=== PATIENT | female | born 1965 | race Caucasian/White ===

== ENCOUNTER 2020-08-07 21:24 | Inpatient (IN) | payer OTHER ==
[~2020-08-07] VITALS: Ht 157.5 cm; Wt 62.7 kg
[2020-08-07] MEDS ORDERED: SODIUM CHLORIDE FLUSH 10ML SYR IVF ONE (21:30)
[2020-08-07] MEDS ORDERED: ONDANSETRON 2MG/ML, 2ML IVPush ONE (21:30)
[2020-08-07] MEDS ORDERED: HYDROmorphone 2 MG/ML, 1ML ONE ×2 (21:40→23:20)
[2020-08-07] MEDS ORDERED: ONDANSETRON 2MG/ML, 2ML ONE (21:41)
[2020-08-07] MEDS: HYDROmorphone 2 MG/ML, 1ML IVPush PRN ×2 (21:46→22:05)
--- NOTE | 2020-08-07 21:49 | NUR ---
medicated per order, on cont pulse ox. rails up, call german will continue monitor.
[2020-08-07 21:53] LABS: BASOPHILS % (AUTO) 0 % (0-1); EOSINOPHILS % (AUTO) 0 % (1-7); LYMPHOCYTES % (AUTO) 5 % (22-44); MEAN CORPUSCULAR HEMOGLOBIN 23.4 pg (27.0-34.8); MEAN CORPUSCULAR HGB CONC 31.3 g/dL (32.4-35.8); MEAN PLATELET VOLUME 8.2 fL (7.4-10.4); MONOCYTES % (AUTO) 3 % (2-9); NEUTROPHILS % (AUTO) 92 % (42-75); PLATELET COUNT 222 x10^3/uL (130-400); RED BLOOD COUNT 4.68 x10^6/uL (3.82-5.3); RED CELL DISTRIBUTION WIDTH 18.4 % (9.6-15.2)
--- NOTE | 2020-08-07 21:54 | NUR ---
PT MOANING, MOVING AROUND BED. ENCOURAGED PT NON PHARM METHODS FOR PAIN CONTROL WHILE DILAUDID WORKS. WILL CONTINUE TO MONITOR.
[2020-08-07 22:06] LABS: ALANINE AMINOTRANSFERASE 16 U/L (12-78); ALBUMIN 3.8 g/dL (3.4-5.0); ANION GAP 9 mmol/L (5-15); CALCIUM 9.2 mg/dL (8.5-10.1); CHLORIDE 107 mmol/L (98-107); CREATININE 1.06 mg/dL (0.55-1.02)
--- NOTE | 2020-08-07 22:06 | NUR ---
Pt still moaning, moving about in gurney with pain. remdicated per order, vs remain stable. no decrease in sats.
[2020-08-07 22:08] LABS: ALKALINE PHOSPHATASE 136 U/L (45-117); BILIRUBIN,TOTAL 0.9 mg/dL (0.2-1.0); TOTAL PROTEIN 8.8 g/dL (6.4-8.2)
[2020-08-07] MEDS ORDERED: METOCLOPRAMIDE 5 MG/ML, 2ML ONE (22:11)
[2020-08-07 22:18] LABS: MD SCAN
--- NOTE | 2020-08-07 22:20 | NUR ---
PT WITH ZERO RELIEF FROM DILAUDID TOTAL 2MG, LOOKING OVER PT MEDS SHE BROUGHT SHE IS TAKING PO NALTROXONE EVERY DAYFOR ETOH. INFORMED DR MEHTA. PT MEDICATED VERY SLOW IV DILUTED OUT REGLAN. WAITING FOR CT SCAN. LIGHTS DIM, WARM BLANKETS ENCOURAGED SLOW DEEP BREATHING, DISTRACTION. VSS.
[2020-08-07] MEDS ORDERED: METOCLOPRAMIDE 5 MG/ML, 2ML IVPush ONE (22:30)
--- NOTE | 2020-08-07 22:32 | NUR ---
TO CT VIA XINTECRNEY. NO RELIEF FROM PAIN PT STATES. ERP AWARE.
--- NOTE | 2020-08-07 22:50 | NUR ---
back from ct pt moaning, crying states "you need to give me something", vss. Reglan helped for pts retching and n/v. waiting for re-eval by erp and ct results.
[2020-08-07 22:57] LABS: MICROSCOPIC NOT IND
[2020-08-07] MEDS ORDERED: OMNIPAQUE 350 MG/ML, 100ML BOTTLE ONE (23:00)
--- NOTE | 2020-08-07 23:09 | NUR ---
Pt up and down from gurney, holding stomach reports severe abdominal pain. ERP aware. VSS.
--- NOTE | 2020-08-07 23:12 | NUR ---
Pt now wandering out of room down [address]arris yelling for help with abdominal pain.
[2020-08-07] MEDS ORDERED: HYDROmorphone 2 MG/ML, 1ML IVPush PRN (23:30)
[2020-08-07] MEDS ORDERED: HYDROmorphone 1 MG/ML, 1ML INJ IVPush PRN (23:45)
[2020-08-08] MEDS ORDERED: SODIUM CHLORIDE FLUSH 10ML SYR IVF PRN
[2020-08-08] MEDS ORDERED: ONDANSETRON 2MG/ML, 2ML IVPush PRN
[2020-08-08] MEDS ORDERED: HEPARIN 5,000 UNITS/ML, 1ML SQ SCH
--- NOTE | 2020-08-08 | NUR ---
Pt medicated total of 4mg dilauid, with very little relief. Pt on naloxone for etoh, md aware. VSS, pt up walking around, reports slight edge off of pain. Report to RN med/surg. Pt and all belongings tx to floor.
[2020-08-08] MEDS: morphine SULFATE 10 MG/ML, 1ML IVPush PRN ×8 (00:29→22:57)
[2020-08-08 00:32] VITALS: BP 172/91
[2020-08-08] MEDS: NS + 20MEQ KCL 1,000 ML IV SCH ×3 (01:10→22:19)
[2020-08-08] MEDS ORDERED: CITA10TA4 PO (01:13)
[2020-08-08] MEDS ORDERED: gabapentin (01:16)
[2020-08-08] MEDS: BISACODYL 10 MG SUPP PR SCH ×2 (01:27→07:58)
[2020-08-08 05:20] LABS: BASOPHILS % (AUTO) 0 % (0-1); EOSINOPHILS % (AUTO) 0 % (1-7); LYMPHOCYTES % (AUTO) 8 % (22-44); MEAN CORPUSCULAR HEMOGLOBIN 23.5 pg (27.0-34.8); MEAN CORPUSCULAR HGB CONC 31.9 g/dL (32.4-35.8); MEAN PLATELET VOLUME 8.4 fL (7.4-10.4); MONOCYTES % (AUTO) 8 % (2-9); NEUTROPHILS % (AUTO) 84 % (42-75); PLATELET COUNT 278 x10^3/uL (130-400); RED BLOOD COUNT 4.54 x10^6/uL (3.82-5.3); RED CELL DISTRIBUTION WIDTH 18.2 % (9.6-15.2)
[2020-08-08 05:23] LABS: MD NO
[2020-08-08 05:24] LABS: ANION GAP 11 mmol/L (5-15); CALCIUM 9.4 mg/dL (8.5-10.1); CHLORIDE 105 mmol/L (98-107)
[2020-08-08 05:27] LABS: CREATININE 1.04 mg/dL (0.55-1.02)
[2020-08-08] MEDS ORDERED: LORazepam 2 MG/ML, 1ML IVPush ONE (06:00)
[2020-08-08 06:44] VITALS: BP 173/89
[2020-08-08] MEDS: INSULIN LISPRO 100 UNITS/ML, PEN SQ-INSULIN SCH ×5 (07:00→21:00)
[2020-08-08] MEDS ORDERED: MAGNESIUM SULFATE/D5W 100 ML IVPB ONE (07:30)
[2020-08-08] MEDS ORDERED: LABETALOL 5MG/ML, 20ML IVPush PRN (07:30)
[2020-08-08] MEDS: IRON SUCROSE COMPLEX 100MG/5ML IV SCH (07:58)
[2020-08-08] MEDS: KETOROLAC 30 MG/1 ML IVPush SCH ×3 (09:39→21:14)
[2020-08-08 13:11] VITALS: BP 162/98
[2020-08-08 13:47] LABS: AMPHETAMINE SCREEN, URINE Negative (Negative); BARBITURATE SCREEN, URINE Negative (Negative); BENZODIAZEPINE SCREEN, URINE Positive (Negative); CANNABINOID SCREEN, URINE Positive (Negative); COCAINE SCREEN, URINE Negative (Negative); METHADONE SCREEN, URINE Negative (Negative); OPIATE SCREEN, URINE Positive (Negative)
[2020-08-08 19:32] VITALS: BP 133/79
[2020-08-09 01:42] VITALS: BP 131/81
[2020-08-09] MEDS: morphine SULFATE 10 MG/ML, 1ML IVPush PRN ×6 (02:33→22:36)
[2020-08-09] MEDS: KETOROLAC 30 MG/1 ML IVPush SCH ×4 (03:28→20:51)
[2020-08-09 07:10] VITALS: BP 132/82
[2020-08-09] MEDS: INSULIN LISPRO 100 UNITS/ML, PEN SQ-INSULIN SCH ×4 (07:26→20:57)
[2020-08-09] MEDS: NS + 20MEQ KCL 1,000 ML IV SCH ×2 (09:05→19:33)
[2020-08-09] MEDS: IRON SUCROSE COMPLEX 100MG/5ML IV SCH (10:09)
[2020-08-09] MEDS: BISACODYL 10 MG SUPP PR SCH (10:09)
[2020-08-09 13:23] VITALS: BP 119/75
[2020-08-09 19:30] VITALS: BP 117/67
[2020-08-10] MEDS: morphine SULFATE 10 MG/ML, 1ML IVPush PRN ×5 (03:04→17:02)
[2020-08-10 03:17] VITALS: BP 147/85
[2020-08-10] MEDS: KETOROLAC 30 MG/1 ML IVPush SCH ×5 (03:29→22:59)
[2020-08-10 05:25] LABS: ALBUMIN 2.7 g/dL (3.4-5.0); ANION GAP 7 mmol/L (5-15); CALCIUM 8.1 mg/dL (8.5-10.1); CHLORIDE 113 mmol/L (98-107)
[2020-08-10 05:28] LABS: ALANINE AMINOTRANSFERASE 10 U/L (12-78); ALKALINE PHOSPHATASE 88 U/L (45-117); BILIRUBIN,TOTAL 1.3 mg/dL (0.2-1.0); CREATININE 0.61 mg/dL (0.55-1.02); TOTAL PROTEIN 6.4 g/dL (6.4-8.2)
[2020-08-10 05:40] LABS: BASOPHILS % (AUTO) 2 % (0-1); EOSINOPHILS % (AUTO) 8 % (1-7); LYMPHOCYTES % (AUTO) 26 % (22-44); MEAN CORPUSCULAR HEMOGLOBIN 23.8 pg (27.0-34.8); MEAN CORPUSCULAR HGB CONC 31.8 g/dL (32.4-35.8); MEAN PLATELET VOLUME 8.4 fL (7.4-10.4); MONOCYTES % (AUTO) 14 % (2-9); NEUTROPHILS % (AUTO) 50 % (42-75); RED BLOOD COUNT 3.81 x10^6/uL (3.82-5.3); RED CELL DISTRIBUTION WIDTH 18.3 % (9.6-15.2)
[2020-08-10 05:47] LABS: MD NO
[2020-08-10 05:48] LABS: PLATELET COUNT 172 x10^3/uL (130-400)
[2020-08-10] MEDS: NS + 20MEQ KCL 1,000 ML IV SCH ×2 (06:15→20:51)
[2020-08-10] MEDS: INSULIN LISPRO 100 UNITS/ML, PEN SQ-INSULIN SCH ×4 (07:10→20:56)
[2020-08-10 07:53] VITALS: BP 137/81
[2020-08-10] MEDS: BISACODYL 10 MG SUPP PR SCH (09:30)
[2020-08-10] MEDS: IRON SUCROSE COMPLEX 100MG/5ML IV SCH (09:31)
[2020-08-10 13:24] VITALS: BP 134/81
[2020-08-10] MEDS ORDERED: MIDAZOLAM 1 MG/ML, 2ML ONE (13:37)
[2020-08-10] MEDS ORDERED: FENTANYL PF 250 MCG/5ML ONE ×3 (13:37→15:05)
[2020-08-10] MEDS ORDERED: DEXAMETHASONE 4 MG/ML, 1ML ONE (13:43)
[2020-08-10] MEDS ORDERED: PROPOFOL 10 MG/ML, 20ML ONE (13:43)
[2020-08-10] MEDS ORDERED: ROCURONIUM 10MG/ML,5ML ONE (13:43)
[2020-08-10] MEDS ORDERED: ONDANSETRON 2MG/ML, 2ML ONE (13:43)
[2020-08-10] MEDS ORDERED: SUCCINYLCHOLINE 20 MG/ML, 10ML ONE (13:43)
[2020-08-10] MEDS ORDERED: NEOSTIGMINE 1 MG/ML, 10ML ONE (13:43)
[2020-08-10] MEDS ORDERED: CEFAZOLIN 1,000 MG ONE (13:43)
[2020-08-10] MEDS ORDERED: GLYCOPYRROLATE 0.2MG/1ML, 5ML ONE (13:43)
[2020-08-10] MEDS ORDERED: OXYcodone 5 MG/5 ML ORAL.SOL UDC PO PRN (14:00)
[2020-08-10] MEDS ORDERED: hydrALAzine 20 MG/ML, 1ML IV PRN (14:00)
[2020-08-10] MEDS ORDERED: MEPERIDINE/PF 25MG/0.5ML IVPush PRN (14:00)
[2020-08-10] MEDS ORDERED: HYDROmorphone 1 MG/ML, 1ML INJ IVPush PRN (14:00)
[2020-08-10] MEDS ORDERED: PROMETHAZINE 25 MG/ML, 1ML IVPush PRN (14:00)
[2020-08-10] MEDS ORDERED: HALOPERIDOL 5 MG/ML IV PRN (14:00)
[2020-08-10] MEDS ORDERED: morphine SULFATE 10 MG/ML, 1ML IVPush PRN (14:00)
[2020-08-10] MEDS ORDERED: LABETALOL 5MG/ML, 20ML IV PRN (14:00)
[2020-08-10] MEDS ORDERED: ACETAMINOPHEN 325 MG TABLET PO PRN (14:00)
[2020-08-10] MEDS ORDERED: BUPIVACAINE/PF 0.25% ONE ×2 (15:12)
[2020-08-10] MEDS ORDERED: SUGAMMADEX 200 MG/2 ML IVPush ONE (15:29)
[2020-08-10] MEDS: FENTANYL PF 100 MCG/2ML IV PRN ×4 (15:42→16:14)
[2020-08-10] MEDS ORDERED: MORPHINE SULFATE 4 MG/ML, 1ML ONE (15:42)
[2020-08-10] MEDS ORDERED: FENTANYL PF 100 MCG/2ML ONE ×2 (15:42→16:23)
[2020-08-10] MEDS ORDERED: KETOROLAC 30 MG/1 ML ONE (16:23)
[2020-08-10 18:48] VITALS: BP 147/81
[2020-08-11 02:38] VITALS: BP 111/69
[2020-08-11] MEDS: KETOROLAC 30 MG/1 ML IVPush SCH ×3 (04:39→16:34)
[2020-08-11] MEDS: NS + 20MEQ KCL 1,000 ML IV SCH ×2 (06:24→16:34)
[2020-08-11 07:31] VITALS: BP 119/69
[2020-08-11] MEDS: INSULIN LISPRO 100 UNITS/ML, PEN SQ-INSULIN SCH ×2 (07:34→10:56)
[2020-08-11] MEDS: BISACODYL 10 MG SUPP PR SCH (09:08)
[2020-08-11] MEDS: IRON SUCROSE COMPLEX 100MG/5ML IV SCH (09:08)
[2020-08-11 13:21] VITALS: BP 134/81
[2020-08-11] MEDS: PANTOPRAZOLE 80 MG in SODIUM CHLORIDE 0.9% 100 ML IV SCH (14:03)
[2020-08-11 19:23] VITALS: BP 150/89
[2020-08-12] MEDS: KETOROLAC 30 MG/1 ML IVPush SCH ×4 (00:13→17:59)
[2020-08-12] MEDS: PANTOPRAZOLE 80 MG in SODIUM CHLORIDE 0.9% 100 ML IV SCH (00:13)
[2020-08-12 02:00] VITALS: BP 147/88
[2020-08-12] MEDS: NS + 20MEQ KCL 1,000 ML IV SCH ×2 (03:15→17:59)
[2020-08-12 06:24] LABS: BASOPHILS % (AUTO) 1 % (0-1); EOSINOPHILS % (AUTO) 9 % (1-7); LYMPHOCYTES % (AUTO) 19 % (22-44); MEAN CORPUSCULAR HEMOGLOBIN 23.7 pg (27.0-34.8); MEAN CORPUSCULAR HGB CONC 31.8 g/dL (32.4-35.8); MEAN PLATELET VOLUME 8.6 fL (7.4-10.4); MONOCYTES % (AUTO) 10 % (2-9); NEUTROPHILS % (AUTO) 60 % (42-75); PLATELET COUNT 199 x10^3/uL (130-400); RED BLOOD COUNT 3.91 x10^6/uL (3.82-5.3)
[2020-08-12 06:36] LABS: ALBUMIN 2.8 g/dL (3.4-5.0); ANION GAP 11 mmol/L (5-15); CHLORIDE 110 mmol/L (98-107); MD NO
[2020-08-12 06:40] LABS: ALANINE AMINOTRANSFERASE 9 U/L (12-78); ALKALINE PHOSPHATASE 90 U/L (45-117); CREATININE 0.59 mg/dL (0.55-1.02); TOTAL PROTEIN 6.5 g/dL (6.4-8.2)
[2020-08-12 09:45] VITALS: BP 130/86
[2020-08-12] MEDS: BISACODYL 10 MG SUPP PR SCH (12:00)
[2020-08-12] MEDS: IRON SUCROSE COMPLEX 100MG/5ML IV SCH (13:09)
[2020-08-12] MEDS: FAMOTIDINE 20 MG/2 ML IVPush SCH ×2 (13:10→21:39)
[2020-08-12 14:00] VITALS: BP 129/80
[2020-08-12 19:48] VITALS: BP 120/70
[2020-08-13] MEDS: KETOROLAC 30 MG/1 ML IVPush SCH ×2 (00:24→06:05)
[2020-08-13 02:03] VITALS: BP 143/85
[2020-08-13 06:04] LABS: BASOPHILS % (AUTO) 1 % (0-1); EOSINOPHILS % (AUTO) 11 % (1-7); LYMPHOCYTES % (AUTO) 22 % (22-44); MEAN CORPUSCULAR HEMOGLOBIN 23.5 pg (27.0-34.8); MEAN CORPUSCULAR HGB CONC 31.4 g/dL (32.4-35.8); MEAN PLATELET VOLUME 8.4 fL (7.4-10.4); MONOCYTES % (AUTO) 9 % (2-9); NEUTROPHILS % (AUTO) 57 % (42-75); PLATELET COUNT 190 x10^3/uL (130-400); RED BLOOD COUNT 3.78 x10^6/uL (3.82-5.3); RED CELL DISTRIBUTION WIDTH 18.5 % (9.6-15.2)
[2020-08-13 06:09] LABS: ANION GAP 13 mmol/L (5-15); CALCIUM 8.2 mg/dL (8.5-10.1); CHLORIDE 112 mmol/L (98-107); CREATININE 0.52 mg/dL (0.55-1.02)
[2020-08-13 06:10] LABS: MD NO
[2020-08-13 07:48] VITALS: BP 139/81
[2020-08-13] MEDS: NS + 20MEQ KCL 1,000 ML IV SCH (09:05)
[2020-08-13] MEDS: FAMOTIDINE 20 MG/2 ML IVPush SCH ×2 (09:05→19:50)
[2020-08-13] MEDS: BISACODYL 10 MG SUPP PR SCH (09:05)
[2020-08-13] MEDS: D5%-0.45NACL+KCL 20MEQ 1,000 ML IV SCH ×2 (11:52→22:08)
[2020-08-13] MEDS: morphine SULFATE 10 MG/ML, 1ML IVPush PRN ×4 (12:00→19:51)
[2020-08-13 14:07] VITALS: BP 129/76
[2020-08-13 19:41] VITALS: BP 165/98
[2020-08-14 00:10] VITALS: BP 169/86
[2020-08-14] MEDS: morphine SULFATE 10 MG/ML, 1ML IVPush PRN ×5 (00:15→20:34)
[2020-08-14 05:10] LABS: CHLORIDE 108 mmol/L (98-107)
[2020-08-14 05:16] LABS: ANION GAP 5 mmol/L (5-15); CALCIUM 8.5 mg/dL (8.5-10.1); CREATININE 0.59 mg/dL (0.55-1.02)
[2020-08-14 05:38] LABS: BASOPHILS % (AUTO) 1 % (0-1); EOSINOPHILS % (AUTO) 9 % (1-7); LYMPHOCYTES % (AUTO) 19 % (22-44); MEAN CORPUSCULAR HEMOGLOBIN 24.1 pg (27.0-34.8); MEAN CORPUSCULAR HGB CONC 32.7 g/dL (32.4-35.8); MEAN PLATELET VOLUME 8.5 fL (7.4-10.4); MONOCYTES % (AUTO) 10 % (2-9); NEUTROPHILS % (AUTO) 60 % (42-75); PLATELET COUNT 190 x10^3/uL (130-400); RED BLOOD COUNT 4.02 x10^6/uL (3.82-5.3); RED CELL DISTRIBUTION WIDTH 18.1 % (9.6-15.2)
[2020-08-14 05:52] LABS: MD NO
[2020-08-14 06:58] VITALS: BP 162/83
[2020-08-14] MEDS ORDERED: POTASSIUM CHLORIDE 20 MEQ TAB.ER.PRT PO ONE (07:30)
[2020-08-14] MEDS: FAMOTIDINE 20 MG/2 ML IVPush SCH ×2 (10:06→20:33)
[2020-08-14] MEDS: BISACODYL 10 MG SUPP PR SCH (10:06)
[2020-08-14] MEDS ORDERED: hydrALAzine 20 MG/ML, 1ML IV PRN (12:00)
[2020-08-14 12:53] VITALS: BP 162/94
[2020-08-14] MEDS: D5%-0.45NACL+KCL 20MEQ 1,000 ML IV SCH (13:11)
[2020-08-14] MEDS: CITALOPRAM 10 MG TABLET PO SCH (13:13)
[2020-08-14 14:16] VITALS: BP 151/92
[2020-08-14] MEDS: HYDROcodone/APAP 5/325 TABLET PO PRN ×2 (15:38→22:20)
[2020-08-14 20:21] VITALS: BP 127/76
[2020-08-15] MEDS: D5%-0.45NACL+KCL 20MEQ 1,000 ML IV SCH ×2 (02:12→16:25)
[2020-08-15] MEDS ORDERED: MORPHINE SULFATE 4 MG/ML, 1ML ONE (02:13)
[2020-08-15 02:16] VITALS: BP 128/83
[2020-08-15] MEDS: morphine SULFATE 10 MG/ML, 1ML IVPush PRN ×3 (02:16→22:29)
[2020-08-15] MEDS: HYDROcodone/APAP 5/325 TABLET PO PRN ×4 (05:56→21:13)
[2020-08-15 06:24] LABS: ANION GAP 5 mmol/L (5-15); CALCIUM 8.5 mg/dL (8.5-10.1); CHLORIDE 111 mmol/L (98-107); CREATININE 0.54 mg/dL (0.55-1.02)
[2020-08-15 06:32] LABS: BASOPHILS % (AUTO) 2 % (0-1); EOSINOPHILS % (AUTO) 12 % (1-7); LYMPHOCYTES % (AUTO) 23 % (22-44); MEAN CORPUSCULAR HEMOGLOBIN 24.5 pg (27.0-34.8); MEAN PLATELET VOLUME 8.8 fL (7.4-10.4); MONOCYTES % (AUTO) 11 % (2-9); NEUTROPHILS % (AUTO) 53 % (42-75); PLATELET COUNT 206 x10^3/uL (130-400); RED BLOOD COUNT 4.03 x10^6/uL (3.82-5.3); RED CELL DISTRIBUTION WIDTH 18.2 % (9.6-15.2)
[2020-08-15 06:52] LABS: MD NO
[2020-08-15] MEDS: METOCLOPRAMIDE 5 MG/ML, 2ML IVPush SCH ×3 (07:51→21:12)
[2020-08-15] MEDS: FAMOTIDINE 20 MG/2 ML IVPush SCH ×2 (07:52→21:13)
[2020-08-15] MEDS: CITALOPRAM 10 MG TABLET PO SCH (07:52)
[2020-08-15 08:43] VITALS: BP 109/68
[2020-08-15] MEDS: BISACODYL 10 MG SUPP PR SCH (09:00)
[2020-08-15 13:06] VITALS: BP 99/68
[2020-08-15 19:07] VITALS: BP 134/83
[2020-08-16 01:09] VITALS: BP 126/80
[2020-08-16] MEDS: morphine SULFATE 10 MG/ML, 1ML IVPush PRN ×5 (01:33→23:36)
[2020-08-16] MEDS: METOCLOPRAMIDE 5 MG/ML, 2ML IVPush SCH ×4 (02:58→20:30)
[2020-08-16] MEDS: D5%-0.45NACL+KCL 20MEQ 1,000 ML IV SCH ×2 (03:33→18:05)
[2020-08-16] MEDS: HYDROcodone/APAP 5/325 TABLET PO PRN ×4 (06:04→20:31)
[2020-08-16 06:31] LABS: CHLORIDE 111 mmol/L (98-107)
[2020-08-16 06:37] LABS: BASOPHILS % (AUTO) 2 % (0-1); EOSINOPHILS % (AUTO) 13 % (1-7); LYMPHOCYTES % (AUTO) 27 % (22-44); MEAN CORPUSCULAR HEMOGLOBIN 24.5 pg (27.0-34.8); MEAN CORPUSCULAR HGB CONC 32.4 g/dL (32.4-35.8); MEAN PLATELET VOLUME 8.2 fL (7.4-10.4); MONOCYTES % (AUTO) 9 % (2-9); NEUTROPHILS % (AUTO) 48 % (42-75); PLATELET COUNT 215 x10^3/uL (130-400); RED BLOOD COUNT 4.03 x10^6/uL (3.82-5.3); RED CELL DISTRIBUTION WIDTH 19.6 % (9.6-15.2)
[2020-08-16 06:39] LABS: ANION GAP 5 mmol/L (5-15); CALCIUM 8.3 mg/dL (8.5-10.1); CREATININE 0.48 mg/dL (0.55-1.02)
[2020-08-16 07:23] VITALS: BP 125/82
[2020-08-16 07:38] LABS: MD MORPH REVIEW ONLY
[2020-08-16 07:41] LABS: ANISOCYTOSIS 1+; MICROCYTOSIS 1+
[2020-08-16 07:42] LABS: HYPOCHROMIA 1+; OVALOCYTES 1+; POLYCHROMASIA 1+
[2020-08-16 07:44] LABS: SCHISTOCYTES 1+; TEAR DROPS 1+
[2020-08-16 07:45] LABS: <PLATELET ESTIMATE> ADEQUATE; <PLT MORPHOLOGY> NORMAL PLT MORPH
[2020-08-16] MEDS: BISACODYL 10 MG SUPP PR SCH (08:00)
[2020-08-16] MEDS: CITALOPRAM 10 MG TABLET PO SCH (08:00)
[2020-08-16] MEDS: FAMOTIDINE 20 MG/2 ML IVPush SCH ×2 (08:00→20:30)
[2020-08-16 13:12] VITALS: BP 144/92
[2020-08-16 19:41] VITALS: BP 155/96
[2020-08-17] MEDS: METOCLOPRAMIDE 5 MG/ML, 2ML IVPush SCH ×2 (03:04→09:49)
[2020-08-17 03:06] VITALS: BP 131/84
[2020-08-17] MEDS: HYDROcodone/APAP 5/325 TABLET PO PRN ×2 (04:37→11:12)
[2020-08-17] MEDS: D5%-0.45NACL+KCL 20MEQ 1,000 ML IV SCH (06:46)
[2020-08-17 08:02] VITALS: BP 142/87
[2020-08-17] MEDS: BISACODYL 10 MG SUPP PR SCH (09:00)
[2020-08-17] MEDS: FAMOTIDINE 20 MG/2 ML IVPush SCH (09:49)
[2020-08-17] MEDS: CITALOPRAM 10 MG TABLET PO SCH (09:49)
[2020-08-17] MEDS ORDERED: D5%-0.45NACL+KCL 20MEQ 1,000 ML IV SCH (11:30)
[2020-08-17 14:36] VITALS: BP 130/92
[2020-08-17] MEDS: OXYcodone/APAP 5/325MG TABLET PO PRN ×2 (15:18→20:10)
[2020-08-17] MEDS: METOCLOPRAMIDE 10MG TABLET PO SCH ×2 (16:29→20:11)
[2020-08-17 18:46] VITALS: BP 152/88
[2020-08-17] MEDS ORDERED: FAMOTIDINE 40 MG TABLET ONE (20:05)
[2020-08-17] MEDS: FAMOTIDINE 20 MG TABLET PO SCH (20:11)
[2020-08-18 00:16] VITALS: BP 133/78
[2020-08-18] MEDS: OXYcodone/APAP 5/325MG TABLET PO PRN ×2 (01:20→06:16)
[2020-08-18] MEDS: METOCLOPRAMIDE 10MG TABLET PO SCH ×4 (06:15→19:49)
[2020-08-18 07:00] VITALS: BP 148/84
[2020-08-18] MEDS ORDERED: ACETAMINOPHEN 325 MG TABLET PO PRN (07:00)
[2020-08-18] MEDS: FAMOTIDINE 20 MG TABLET PO SCH ×2 (09:00→19:50)
[2020-08-18] MEDS: BISACODYL 10 MG SUPP PR SCH (09:00)
[2020-08-18] MEDS ORDERED: FAMOTIDINE 40 MG TABLET ONE ×2 (09:18→19:40)
[2020-08-18] MEDS: CITALOPRAM 10 MG TABLET PO SCH (09:23)
[2020-08-18] MEDS: OXYcodone IR 5MG TABLET PO PRN ×5 (09:23→23:16)
[2020-08-18 11:47] VITALS: BP 143/76
[2020-08-18 18:52] VITALS: BP 125/73
[2020-08-19 01:48] VITALS: BP 115/70
[2020-08-19 06:57] VITALS: BP 120/78
[2020-08-19] MEDS ORDERED: FAMOTIDINE 40 MG TABLET ONE (07:46)
[2020-08-19] MEDS: BISACODYL 10 MG SUPP PR SCH (07:49)
[2020-08-19] MEDS: FAMOTIDINE 20 MG TABLET PO SCH (07:50)
[2020-08-19] MEDS: OXYcodone IR 5MG TABLET PO PRN ×2 (07:50→12:16)
[2020-08-19] MEDS ORDERED: DOCU-131 PO (07:51)
[2020-08-19] MEDS ORDERED: ACET325T26 PO (07:51)
[2020-08-19] MEDS: METOCLOPRAMIDE 10MG TABLET PO SCH ×2 (07:51→12:16)
[2020-08-19] MEDS ORDERED: OXYC5TAB3 PO ×4 (07:51→08:36)
[2020-08-19] MEDS: CITALOPRAM 10 MG TABLET PO SCH (07:51)
[2020-08-19 12:37] VITALS: BP 112/74
== END 2020-08-19 14:45 | disposition home or self-care (01) | DRG 336 ==
LOC: ED 22:12 → EDIP 08-08 00:03 → 4NW 08-08 00:16 → DCLOUNGE 08-19 14:29
PROVIDERS: ADMIT Family Medicine; ATTEND Hospitalist
PROC: 0DJD0ZZ Inspection of Lower Intestinal Tract, Open Approach (ICD-10-PCS; 2020-08-10)
PROC: 0DTJ0ZZ Resection of Appendix, Open Approach (ICD-10-PCS; 2020-08-10)
PROC: 0DNU0ZZ Release Omentum, Open Approach (ICD-10-PCS; principal; 2020-08-10 14:30)
PROC: 0DH67UZ Insertion of Feeding Device into Stomach, Via Natural or Artificial Opening (ICD-10-PCS; 2020-08-11)
DX: K56.52 Intestinal adhesions [bands] with complete obstruction (principal); E46 Unspecified protein-calorie malnutrition; Z20.828 Contact with and (suspected) exposure to other viral communicable diseases; K56.7 Ileus, unspecified; K43.9 Ventral hernia without obstruction or gangrene; D50.9 Iron deficiency anemia, unspecified; E11.65 Type 2 diabetes mellitus with hyperglycemia; E87.6 Hypokalemia; F10.21 Alcohol dependence, in remission; I07.1 Rheumatic tricuspid insufficiency; I35.8 Other nonrheumatic aortic valve disorders; Z87.11 Personal history of peptic ulcer disease; Z90.49 Acquired absence of other specified parts of digestive tract; Z98.891 History of uterine scar from previous surgery; Z79.899 Other long term (current) drug therapy; Z79.891 Long term (current) use of opiate analgesic; Z79.01 Long term (current) use of anticoagulants; Z79.4 Long term (current) use of insulin; Z68.25 Body mass index [BMI] 25.0-25.9, adult
CPT/HCPCS: 36415; 74018; 74022; 74177; 80048; 80053; 80307; 81003; 82728; 82962; 83036; 83540; 83550; 83605; 83690; 83735; 84100; 85025; 87635; 88304; 93005; 93306; G0378; J0690; J1100; J1170; J1644; J1756; J1885; J2250; J2270; J2405; J2704; J2710; J3010; J3480; Q9967; C9113; J0330; J1815; J2060; J2765

== ENCOUNTER 2020-08-25 23:48 | Inpatient (IN) | payer MEDICAID ==
[~2020-08-25] VITALS: Ht 157.5 cm; Wt 61.2 kg
[~2020-08-25 23:48] MED LIST: ACET325T26 PO; CITA10TA4 PO; DOCU-131 PO; OXYC5TAB3 PO; gabapentin
[2020-08-25] MEDS ORDERED: LIDOCAINE-MPF 1%, 5ML ONE (23:57)
[2020-08-26] MEDS ORDERED: LIDOCAINE-MPF 1%, 5ML INFIL ONE
--- NOTE | 2020-08-26 | NUR ---
TASK RN: BIB [facility] FROM HALF-WAY S/P GLF. +LAC TO R FOREHEAD. DENIES LOC/MIDLINE NECK OR BACK PAIN, DENIES TAKING BLOOD THINNERS. PT MARKEDLY DROWSY UPON ARRIVAL, MAINTAINING OWN AIRWAY AND ARROUSABLE TO VOICE AND LIGHT PHYSICAL STIM. UPON AWAKING, PT A&OX4. BP/SPO2/ECG MONITORING IN PLACE. SINUS TACH ON MONITOR. IVF INFUSING FROM [facility], OKAY PER ERP. BG JAVA J2EE TECHNICAL LEAD 150. RECENT SURGICAL INCISION ON ABDOMEN. PT STATES SHE HAD A BOWEL SURGERY AND APPENDECTOMY AT [facility]. WOUND APPEARS WELL APPROXIMATED, IS DRY AND NON-TENDER
[2020-08-26] MEDS ORDERED: DIAZ10TA4 PO (00:25)
[2020-08-26] MEDS ORDERED: CITA20TA9 PO (00:25)
[2020-08-26] MEDS ORDERED: GABA-827 PO (00:25)
[2020-08-26] MEDS ORDERED: TRAZ-175 PO (00:25)
[2020-08-26 01:01] LABS: BASOPHILS % (AUTO) 1 % (0-1); EOSINOPHILS % (AUTO) 0 % (1-7); LYMPHOCYTES % (AUTO) 12 % (22-44); MEAN CORPUSCULAR HEMOGLOBIN 24.1 pg (27.0-34.8); MEAN CORPUSCULAR HGB CONC 31.6 g/dL (32.4-35.8); MONOCYTES % (AUTO) 5 % (2-9); NEUTROPHILS % (AUTO) 81 % (42-75); PLATELET COUNT 450 x10^3/uL (130-400); RED BLOOD COUNT 5.26 x10^6/uL (3.82-5.3); RED CELL DISTRIBUTION WIDTH 24.8 % (9.6-15.2)
--- NOTE | 2020-08-26 01:07 | NUR ---
PT REMAINS CONNECTED TO ALL MONITORS. VISIBLE CHEST RISE AND FALL.
[2020-08-26 01:10] LABS: ALANINE AMINOTRANSFERASE 13 U/L (12-78); ALBUMIN 3.5 g/dL (3.4-5.0); ANION GAP 10 mmol/L (5-15); CALCIUM 8.6 mg/dL (8.5-10.1); CHLORIDE 108 mmol/L (98-107); CREATININE 2.23 mg/dL (0.55-1.02)
[2020-08-26 01:12] LABS: ALKALINE PHOSPHATASE 117 U/L (45-117); BILIRUBIN,TOTAL 0.9 mg/dL (0.2-1.0); TOTAL PROTEIN 8.3 g/dL (6.4-8.2)
[2020-08-26 01:13] LABS: SALICYLATE LEVEL < 1.7 mg/dL (2.8-20.0)
[2020-08-26 01:26] LABS: ANISOCYTOSIS 1+; MD MORPH REVIEW ONLY; OVALOCYTES 1+
[2020-08-26 01:27] LABS: <PLATELET ESTIMATE> INCREASED; <PLT MORPHOLOGY> NORMAL PLT MORPH
[2020-08-26] MEDS ORDERED: SODIUM CHLORIDE 0.9% 1,000ML IVBOLUS ONE (01:30)
[2020-08-26] MEDS ORDERED: SODIUM CHLORIDE FLUSH 10ML SYR IVF ONE (01:30)
[2020-08-26] MEDS ORDERED: DIPH,PERTUSS(ACELL),TET VAC/PF 0.5 ML IM-VACC ONE ×2 (01:42)
--- NOTE | 2020-08-26 03:14 | NUR ---
ADMITTING MD AT BEDSIDE.
[2020-08-26] MEDS ORDERED: BUTALB/APAP/CAFFEINE 50MG/325MG/40MG PO PRN (03:30)
[2020-08-26] MEDS ORDERED: BISACODYL 10 MG SUPP PR PRN (03:30)
[2020-08-26] MEDS ORDERED: LABETALOL 5MG/ML, 20ML IVPush PRN (03:30)
[2020-08-26] MEDS ORDERED: LIDODERM 5% PATCH TD PRN (03:30)
[2020-08-26] MEDS ORDERED: POLYETHYLENE GLYCOL 17 GM PACKET PO PRN (03:30)
[2020-08-26] MEDS ORDERED: ONDANSETRON 2MG/ML, 2ML IVPush PRN (03:30)
[2020-08-26] MEDS ORDERED: PROMETHAZINE 25 MG/ML, 1ML IM PRN (03:30)
[2020-08-26] MEDS ORDERED: ACETAMINOPHEN 325 MG TABLET PO PRN (03:30)
--- NOTE | 2020-08-26 03:31 | NUR ---
PT ON HOSPITAL BED.
[2020-08-26] MEDS ORDERED: ACETAMINOPHEN 325 MG TABLET ONE (03:37)
[2020-08-26] MEDS ORDERED: OXYcodone 5 MG/5 ML ORAL.SOL UDC ONE (03:40)
[2020-08-26] MEDS ORDERED: OXYcodone IR 5MG TABLET ONE ×2 (03:43→12:23)
[2020-08-26] MEDS: OXYcodone IR 5MG TABLET PO PRN ×2 (03:45→12:26)
[2020-08-26] MEDS: LACTATED RINGERS 1,000 ML IV SCH ×3 (03:45→20:08)
--- NOTE | 2020-08-26 05:44 | NUR ---
LEV UPDATED WITH PT'S PERMISSION. PER LEV "YOU KNOW SHE WAS DRUNK LAST NIGHT RIGHT? I'M IN CHARGE OF HER VALIUM AND I DID NOT GIVE HER ANY, I FOUND AN EMPTY BOTTLE OF ALCOHOL WHEN I DID HER ROOM SEARCH."
--- NOTE | 2020-08-26 05:49 | NUR ---
PT TO IMAGING.
[2020-08-26] MEDS ORDERED: GABAPENTIN 100 MG CAPSULE PO SCH (06:00)
--- NOTE | 2020-08-26 07:04 | NUR ---
REPORT TO ABBE KAUFMAN. PT AWAKE AND ALERT. NADN. REMAINS CONNECTED TO ALL MONITORS.
--- NOTE | 2020-08-26 07:12 | NUR ---
THIS RN WALKED 6 PILLS THAT ABBE HARRELL FOUND IN PATIENT'S BRA TO PHARMACY FOR STORAGE WHILE PT IS ADMITTED IN HOSPITAL.
[2020-08-26] MEDS: CITALOPRAM 20 MG TABLET PO SCH (08:39)
[2020-08-26] MEDS: SENNA/DOCUSATE TABLET PO SCH (08:41)
[2020-08-26] MEDS ORDERED: DIAZEPAM 5 MG TABLET PO SCH (09:00)
--- NOTE | 2020-08-26 09:30 | NUR ---
PT GIVEN MEAL TRAY, ASSISTED WITH BEDPAN, VSS, NO OTHER NEEDS AT THIS TIME
[2020-08-26 10:12] LABS: CHLORIDE,URINE RANDOM 52 mmol/L; POTASSIUM,URINE RANDOM 88 mmol/L; SODIUM,URINE RANDOM 31 mmol/L
[2020-08-26 10:24] LABS: AMPHETAMINE SCREEN, URINE Negative (Negative); BARBITURATE SCREEN, URINE Negative (Negative); BENZODIAZEPINE SCREEN, URINE Positive (Negative); CANNABINOID SCREEN, URINE Positive (Negative); COCAINE SCREEN, URINE Negative (Negative); METHADONE SCREEN, URINE Negative (Negative); OPIATE SCREEN, URINE Negative (Negative)
--- NOTE | 2020-08-26 12:27 | NUR ---
BREAK RN- MEDICATION ORDERED
--- NOTE | 2020-08-26 13:38 | NUR ---
PT RIPPED OFF CSPINE COLLAR, STATES SHE WILL NOT PUT BACK ON. SOFT ASPEN COLLAR ORDERED FROM [facility], PT EDUCATED ON NEED FOR C SPINE STABLIZATION. PT WILL ALLOW SOFT COLLAR PLACEMENT. [facility] CALLED
--- NOTE | 2020-08-26 14:05 | NUR ---
VISTA COLLAR PLACED BY 2 RN WITH MD AT BEDSIDE. MD TO ORDER ADDITIONAL PAIN MEDICATIONS PER PT REQUEST. AWAITING ORDERS. VSS. NO ADDITIONAL NEEDS AT THIS TIME
[2020-08-26] MEDS ORDERED: GABAPENTIN 100 MG CAPSULE PO PRN (14:30)
[2020-08-26] MEDS ORDERED: HYDROmorphone 1 MG/ML, 1ML INJ IM PRN ×2 (14:30)
[2020-08-26] MEDS ORDERED: DIAZEPAM 5 MG TABLET PO PRN (14:30)
--- NOTE | 2020-08-26 14:30 | NUR ---
LEV FIELD UNDERWRITER AT [facility]. [phone]
[2020-08-26] MEDS ORDERED: GABAPENTIN 300 MG CAPSULE ONE (15:36)
[2020-08-26] MEDS ORDERED: HYDROmorphone 1 MG/ML, 1ML INJ ONE (15:36)
[2020-08-26] MEDS: HYDROmorphone 1 MG/ML, 1ML INJ IV PRN ×2 (15:39→20:08)
--- NOTE | 2020-08-26 15:44 | NUR ---
TASK RN: PT ASSISTED W/ BED ASIM. MEDICATED PER EMAR.
[2020-08-26] MEDS ORDERED: GABAPENTIN 300 MG CAPSULE PO PRN (16:30)
[2020-08-26] MEDS ORDERED: TRAZODONE 50MG TABLET PO PRN (16:30)
--- NOTE | 2020-08-26 17:50 | NUR ---
REPORT CALLED TO RECIEVING RN
[2020-08-26 20:09] VITALS: BP 128/74
[2020-08-26] MEDS ORDERED: TRAZODONE 100MG TABLET PO SCH (21:00)
[2020-08-27 00:02] VITALS: BP 151/90
[2020-08-27] MEDS: HYDROmorphone 1 MG/ML, 1ML INJ IV PRN ×6 (00:12→21:33)
[2020-08-27] MEDS: LACTATED RINGERS 1,000 ML IV SCH ×2 (04:28→15:55)
[2020-08-27 05:47] LABS: BASOPHILS % (AUTO) 2 % (0-1); EOSINOPHILS % (AUTO) 1 % (1-7); LYMPHOCYTES % (AUTO) 24 % (22-44); MEAN CORPUSCULAR HEMOGLOBIN 24.2 pg (27.0-34.8); MEAN CORPUSCULAR HGB CONC 31.9 g/dL (32.4-35.8); MEAN PLATELET VOLUME 7.9 fL (7.4-10.4); MONOCYTES % (AUTO) 9 % (2-9); NEUTROPHILS % (AUTO) 64 % (42-75); PLATELET COUNT 286 x10^3/uL (130-400)
[2020-08-27 05:57] LABS: ANION GAP 5 mmol/L (5-15); CHLORIDE 106 mmol/L (98-107)
[2020-08-27 05:59] LABS: CALCIUM 8.7 mg/dL (8.5-10.1); CREATININE 1.43 mg/dL (0.55-1.02)
[2020-08-27 06:36] VITALS: BP 147/77
[2020-08-27 06:36] LABS: MD SCAN
[2020-08-27] MEDS ORDERED: POTASSIUM CHLORIDE 20 MEQ TAB.ER.PRT PO ONE (07:30)
[2020-08-27] MEDS: CITALOPRAM 20 MG TABLET PO SCH (08:31)
[2020-08-27] MEDS: SENNA/DOCUSATE TABLET PO SCH (08:43)
[2020-08-27 14:37] VITALS: BP 156/77
[2020-08-27 19:28] VITALS: BP 157/90
[2020-08-27] MEDS: OXYcodone IR 5MG TABLET PO PRN (20:58)
[2020-08-28] MEDS: LACTATED RINGERS 1,000 ML IV SCH ×3 (00:28→14:19)
[2020-08-28] MEDS: OXYcodone IR 5MG TABLET PO PRN ×4 (01:09→14:18)
[2020-08-28] MEDS: HYDROmorphone 1 MG/ML, 1ML INJ IV PRN ×2 (01:40→05:47)
[2020-08-28 03:34] VITALS: BP 167/88
[2020-08-28 04:37] LABS: ANION GAP 6 mmol/L (5-15); CALCIUM 9.4 mg/dL (8.5-10.1); CHLORIDE 106 mmol/L (98-107)
[2020-08-28 04:38] LABS: CREATININE 0.95 mg/dL (0.55-1.02)
[2020-08-28 07:25] VITALS: BP 144/82
[2020-08-28] MEDS: SENNA/DOCUSATE TABLET PO SCH (09:43)
[2020-08-28] MEDS: CITALOPRAM 20 MG TABLET PO SCH (09:44)
[2020-08-28] MEDS ORDERED: OXYC5TAB3 PO (13:19)
[2020-08-28 15:26] VITALS: BP 148/95
== END 2020-08-28 17:06 | disposition home or self-care (01) | DRG 917 ==
LOC: MERGE 23:48 → ED 08-26 02:57 → EDIP 08-26 03:18 → INTOOBSV 08-26 03:18 → OBSVTOIN 08-26 16:11 → 3N 08-26 19:19
PROVIDERS: ADMIT Family Medicine; ATTEND Internal Medicine
PROC: 0HQ0XZZ Repair Scalp Skin, External Approach (ICD-10-PCS; principal; 2020-08-26)
DX: T42.4X1A Poisoning by benzodiazepines, accidental (unintentional), initial encounter (principal); G92 Toxic encephalopathy; N17.0 Acute kidney failure with tubular necrosis; S12.300A Unspecified displaced fracture of fourth cervical vertebra, initial encounter for closed fracture; D72.829 Elevated white blood cell count, unspecified; E11.9 Type 2 diabetes mellitus without complications; G47.00 Insomnia, unspecified; G89.11 Acute pain due to trauma; K22.4 Dyskinesia of esophagus; K59.00 Constipation, unspecified; S01.01XA Laceration without foreign body of scalp, initial encounter; S01.112A Laceration without foreign body of left eyelid and periocular area, initial encounter; W18.09XA Striking against other object with subsequent fall, initial encounter; Y93.89 Activity, other specified; Y92.89 Other specified places as the place of occurrence of the external cause; Y99.8 Other external cause status; Z87.11 Personal history of peptic ulcer disease; Z90.49 Acquired absence of other specified parts of digestive tract
CPT/HCPCS: 36415; 70450; 72125; 72141; 80048; 80053; 80299; 80307; 80320; 80329; 82436; 82550; 82570; 83735; 84133; 84300; 84443; 85025; 90715; 93005; G0378; J1170; G0480; J7030; J7120

== ENCOUNTER 2020-08-29 01:14 | Emergency (ER) | payer MEDICAID ==
[~2020-08-29] VITALS: Ht 157.5 cm; Wt 60.0 kg
[~2020-08-29 01:14] MED LIST changes: +CITA20TA9 PO; +DIAZ10TA4 PO; +GABA-827 PO; +TRAZ-175 PO
[2020-08-29] MEDS ORDERED: DIAZEPAM 5 MG TABLET PO ONE (01:30)
[2020-08-29] MEDS ORDERED: DIAZEPAM 5 MG TABLET ONE (01:33)
[2020-08-29 02:13] VITALS: BP 141/69
--- NOTE | 2020-08-29 02:13 | NUR ---
Patient given discharge instructions and they have confirmed that they understand the instructions. Patient ambulatory with steady gait.
--- NOTE | 2020-08-29 02:17 | NUR ---
PT PROVIDED CAB VOUCHER BACK TO [facility] FROM ED. AMBULATORY WITH STEADY GAIT WITH D/C DESK
== END 2020-08-29 02:19 | disposition home or self-care (01) ==
LOC: ED 01:48
DX: F41.9 Anxiety disorder, unspecified (principal); R06.02 Shortness of breath; Z87.891 Personal history of nicotine dependence; Z90.49 Acquired absence of other specified parts of digestive tract
CPT/HCPCS: 71045; 99283